=== PATIENT | female | born 1955 | race Asian ===

== ENCOUNTER 2017-10-17 14:07 | Outpatient (CLI) | payer BC | END 2017-10-17 14:08 | disposition home or self-care (01) | LOC: BICMAMMO 14:07 | PROVIDERS: ATTEND Radiology Radiation Oncology | DX: Z08 Encounter for follow-up examination after completed treatment for malignant neoplasm (principal); Z85.3 Personal history of malignant neoplasm of breast | CPT/HCPCS: 77066; G0279 ==

== ENCOUNTER 2018-06-07 07:01 | Outpatient (CLI) | payer BC ==
--- NOTE | 2018-06-07 08:43 | ULT ---
SONOGRAM ABDOMEN COMPLETE: HISTORY: Abdominal pain. FINDINGS: A normal gallbladder is not seen at the gallbladder fossa. Echogenicity and dirty shadowing at the e xpected location of the gallbladder could represent the duodenum or possibly a contracted gallbladder around stones. The common bile duct is fusiformly dilated up to 2.1 cm. No stones are apparent wit hin the common duct. No intrahepatic biliary dilatation. Liver has a normal appearance. No free fl uid. The spleen, kidneys, and visualized portions of the abdominal aorta, IVC, and pancreas have a n ormal sonographic appearance. IMPRESSION: Normal gallbladder not visualized. Gallbladder not confidently identified. 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 The lac k of intrahepatic biliary dilatation argues against significant biliary obstruction. Please consider further evaluation with MRI, CT, or ERCP for better characterization. POS: KATI
== END 2018-06-07 07:02 | disposition home or self-care (01) ==
LOC: SCSULT 07:01
PROVIDERS: ATTEND Internal Medicine Gastroenterology
DX: R10.13 Epigastric pain (principal); K83.9 Disease of biliary tract, unspecified
CPT/HCPCS: 76700

== ENCOUNTER 2018-06-21 07:47 | Outpatient (CLI) | payer BC ==
--- NOTE | 2018-06-21 11:36 | MRI ---
MRI ABDOMEN WITHOUT CONTRAST: Date: 06/21/18 HISTORY: K21.9 gastroesophageal reflux disease. COMPARISON: Ultrasound dated 06/07/18. FINDINGS: There is no intrahepatic biliary dilatation. There is fusiform cystic dilatation of the cystic duct, as well as of the common bile duct to the level of the pancreatic head, which is then narrowed to a n ormal caliber. No filling defects are seen within the biliary system. No pancreatic ductal dilatation . Within the pancreatic tail is a single 3.0 mm T2 hyperintense focus along the dorsal aspect of the pa ncreas. No annular pancreas. Kidneys are unremarkable. Adrenal glands are unremarkable. Liver is unremarkable . Aortic contour is unremarkable. Background marrow signal of the spine is normal. No dilated loops of bowel in the abdomen. No adenopa thy. 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 There are n o filling defects. POS: KATI
== END 2018-06-21 07:48 | disposition home or self-care (01) ==
LOC: MRI 07:47
PROVIDERS: ATTEND Internal Medicine Gastroenterology
DX: K21.9 Gastro-esophageal reflux disease without esophagitis (principal); R93.5 Abnormal findings on diagnostic imaging of other abdominal regions, including retroperitoneum; G47.00 Insomnia, unspecified; Q44.4 Choledochal cyst; K82.8 Other specified diseases of gallbladder; K83.8 Other specified diseases of biliary tract
CPT/HCPCS: 74181

== ENCOUNTER 2018-11-13 10:06 | Outpatient (CLI) | payer BC ==
--- NOTE | 2018-11-13 11:01 | MMO ---
Bilateral MAMMO Bilat Diag [facility]. CLINICAL HISTORY: Patient is 63 years old and is seen for diagnostic exam. The patient has no family history of breast cancer. The patient has a history of malignant (generic) in the left breast in Sep, 2014. The patient has a history of left Lumpectomy in Sep, 2014 - malignant. VIEWS: The views performed were: bilateral craniocaudal with tomosynthesis; bilateral mediolateral oblique with tomosynthesis; bilateral mediolateral with tomosynthesis; and right mediolateral spot compression with tomosynthesis. FILMS COMPARED: The present examination has been compared to prior imaging studies performed at [facility] on 09/29/2014, 10/05/2015, 10/03/2016 and 10/17/2017. MAMMOGRAM FINDINGS: The breasts are heterogeneously dense, which could obscure a lesion on mammography. There are stable post operative changes seen in the left breast. There are no suspicious masses, suspicious calcifications, or new areas of architectural distortion. IMPRESSION: THERE IS NO MAMMOGRAPHIC EVIDENCE OF MALIGNANCY. A ROUTINE FOLLOW-UP MAMMOGRAM IN 1 YEAR IS RECOMMENDED. THE RESULTS OF THIS EXAM WERE SENT TO THE PATIENT. ACR BI-RADS Category 2 - Benign finding MAMMOGRAPHY NOTE: 1. A negative mammogram report should not delay a biopsy if a dominant of clinically suspicious mass is present. 2. Approximately 10% to 15% of breast cancers are not detected by mammography. 3. Adenosis and dense breasts may obscure an underlying neoplasm.
== END 2018-11-13 10:07 | disposition home or self-care (01) ==
LOC: BICMAMMO 10:06
PROVIDERS: ATTEND Specialist
DX: Z08 Encounter for follow-up examination after completed treatment for malignant neoplasm (principal); Z85.3 Personal history of malignant neoplasm of breast; Z90.12 Acquired absence of left breast and nipple
CPT/HCPCS: 77066; G0279

== ENCOUNTER 2019-05-02 11:48 | Outpatient (CLI) | payer BC ==
--- NOTE | 2019-05-02 14:15 | MRI ---
MR the abdomen with and without IV contrast INDICATION: History of a congenital choledochocyst COMPARISON: Prior MR the abdomen without contrast dated June 21, 2018. TECHNIQUE: Multiplanar multisequence MR images were obtained of the abdomen with and without contrast utilizing 10 cc of MultiHance. FINDINGS: The congenitally dilated common bile duct and cystic duct have enlarged from the prior exam ination. The proximal to mid dilated common bile duct now measures 3.7 cm in its greatest coronal oblique dimension on image 10 of series 2 where previously it measured 1.3 cm. The dilated cystic emma t now measures 9.7 mm were previously measured 8 mm. The distal 2 cm of the common bile duct is normal in caliber measuring 4.9 mm. The main pancreatic duct is of normal caliber. The gallbladder is only minimally to mildly distended. Small 3 mm T2 hyperintensity involving the dorsal aspect of the pancreatic tail is stable. No additional focal pancreatic lesion is evident. No intrahepatic bili buck ductal dilatation is noted. The adrenal glands, kidneys and spleen are normal appearing. No enlarged lymph nodes are evident. IMPRESSION: Worsening dilatation of the congenital choledochal cyst.
== END 2019-05-02 11:49 | disposition home or self-care (01) ==
LOC: MRI 11:48
PROVIDERS: ATTEND Internal Medicine Gastroenterology
DX: Q44.4 Choledochal cyst (principal)
CPT/HCPCS: 74183; 82565

== ENCOUNTER 2021-07-15 08:52 | Outpatient (CLI) | payer MEDICARE, BC ==
[2021-07-15] MEDS ORDERED: Magnevist 469MG/ML 20 ML VIAL ONE (11:02)
== END 2021-07-15 08:53 | disposition home or self-care (01) ==
LOC: MRI 08:52
PROVIDERS: ATTEND Internal Medicine Gastroenterology
DX: Q44.4 Choledochal cyst (principal); D73.4 Cyst of spleen
CPT/HCPCS: 74183